=== PATIENT | male | born 1980 | race Caucasian/White ===

== ENCOUNTER 2016-06-22 13:13 | Inpatient (IN) | payer MEDICAID, OTHER ==
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
[2016-06-22] MEDS ORDERED: HALOPERIDOL LACTATE 5 MG/ML 1 ML VIAL IM STA (14:57)
[2016-06-22] MEDS ORDERED: ACETAMINOPHEN TAB 325 MG TAB PO PRN (18:56)
[2016-06-22] MEDS ORDERED: MAGNESIUM HYDROXIDE 2,400 MG/10 ML CUP PO PRN (18:56)
[2016-06-22] MEDS ORDERED: MAG HYDROX/AL HYDROX/SIMETH 30 ML CUP PO PRN (18:56)
[2016-06-22] MEDS ORDERED: ZIPRASIDONE 20 MG VIAL IM PRN (18:56)
[2016-06-22] MEDS ORDERED: IBUPROFEN 800 MG TAB PO PRN (19:19)
[2016-06-22] MEDS ORDERED: CLOTRIMAZOLE 1% CREAM 15 GM TUBE TOPICAL PRN (19:19)
[2016-06-22] MEDS ORDERED: NON-FORMULARY DRUG (Ketoconazole 2% Cream 1 APPLIC) TOPICAL PRN (19:19)
[2016-06-22] MEDS ORDERED: LORazepam 2 MG/ML SYRINGE IM PRN (19:21)
[2016-06-22 19:43] LABS: Amorphous Sediment,Urine Rare /hpf; Appearance,Urine Clear (Clear); Bilirubin,Urine Negative (Negative); Glucose,Urine (UA) Negative (Negative); Ketones,Urine Negative (Negative); Leukocyte Esterase,Urine Negative (Negative); Mucus,Urine Rare /hpf; Nitrite,Urine Negative (Negative); PH, Urine 5.5 (5.0-8.0); Particle Count 609; Protein,Urine Negative (Negative); Specific Gravity,Urine 1.009 (1.001-1.035); Squamous Epithelial Cell,Urine <1 /hpf (0-4); UA Billing (MACRO vs. MICRO) MICRO; Urobilinogen,Urine <2.0 mg/dL (<2.0); WBC,Urine <1 /hpf (0-5)
[2016-06-22] MEDS: MONTELUKAST 10 MG TAB PO SCH (21:40)
[2016-06-22] MEDS: PREGABALIN 75 MG CAP PO SCH (21:41)
[2016-06-22] MEDS: valACYclovir 500 MG TAB PO SCH (21:41)
[2016-06-23] MEDS: LORazepam 1 MG TAB PO PRN ×2 (08:28→21:29)
[2016-06-23] MEDS: LORATADINE 10 MG TAB PO SCH (08:29)
[2016-06-23] MEDS: NICOTINE 14MG/24HR PATCH TRANSDERM SCH ×2 (08:29→17:48)
[2016-06-23] MEDS: FLUoxetine HCL 20 MG CAP PO SCH (08:29)
[2016-06-23] MEDS: PREGABALIN 75 MG CAP PO SCH ×2 (08:29→21:25)
[2016-06-23] MEDS: valACYclovir 500 MG TAB PO SCH ×2 (08:29→21:26)
[2016-06-23 10:26] LABS: Basophils % (A) 1 %; CH 29.9; CHCM 33.4; Eosinophils # (A) 0.3 k/uL (0-0.7); Eosinophils % (A) 4 %; HCT 43.7 % (39.0-53.0); HDW 2.82; HGB 14.5 gm/dL (13.0-17.5); Luc # (Auto) 0.12; Luc % (Auto) 2; Lymphocytes # (A) 0.7 k/uL (1.0-4.8); Lymphocytes % (A) 10 %; MCH 29.9 pg (25.0-35.0); MCHC 33.2 g/dL (31.0-37.0); Mean Platelet Volume 7.4; Monocytes # (A) 0.5 k/uL (0-1.0); Monocytes % (A) 8 %; Neutrophils # (A) 5.5 k/uL (1.3-7.7); Neutrophils % (A) 77 %; RBC 4.85 m/uL (4.30-5.90); RDW 14.1 % (11.5-15.5); WBC 7.1 k/uL (3.8-10.6); WBC (Perox) 7.51
[2016-06-23 10:31] LABS: ALT 92 U/L (21-72); AST 121 U/L (17-59); Alkaline Phosphatase 52 U/L (38-126); Anion Gap 6 mmol/L; Blood Urea Nitrogen 14 mg/dL (9-20); Calcium 8.8 mg/dL (8.4-10.2); Carbon Dioxide 26 mmol/L (22-30); Chloride 108 mmol/L (98-107); Glucose 160 mg/dL (74-99); Non-African American GFR(MDRD) >60 (>60 ml/min/1.73 sqM); Potassium 4.3 mmol/L (3.5-5.1); Sodium 140 mmol/L (137-145); Total Protein 6.6 g/dL (6.3-8.2)
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
[2016-06-23] MEDS: MONTELUKAST 10 MG TAB PO SCH (21:25)
[2016-06-23] MEDS: TRIAMCINOLONE 0.1% CREAM 80 GM TUBE TOPICAL SCH (21:26)
[2016-06-23] MEDS: MUPIROCIN 2% OINT 22 GM TUBE TOPICAL SCH (21:27)
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
[2016-06-24] MEDS: NICOTINE 14MG/24HR PATCH TRANSDERM SCH (09:20)
[2016-06-24] MEDS: LORATADINE 10 MG TAB PO SCH (09:20)
[2016-06-24] MEDS: FLUoxetine HCL 20 MG CAP PO SCH (09:20)
[2016-06-24] MEDS: valACYclovir 500 MG TAB PO SCH (09:21)
[2016-06-24] MEDS: TRIAMCINOLONE 0.1% CREAM 80 GM TUBE TOPICAL SCH ×3 (09:21→19:10)
[2016-06-24] MEDS: PREGABALIN 75 MG CAP PO SCH (09:21)
[2016-06-24] MEDS: MUPIROCIN 2% OINT 22 GM TUBE TOPICAL SCH ×3 (09:22→19:10)
[2016-06-24] MEDS: FLUTICASONE 50MCG/SPRAY NASAL 16GM EA NOSTRIL PRN ×2 (09:24→13:50)
[2016-06-24] MEDS: LORazepam 1 MG TAB PO PRN (09:25)
--- NOTE | 2016-06-24 10:52 | P.PN ---
Progress Note - Text Interval history: The patient is found in group he follows me to an interview room. He was seen initially yesterday by Dr. Portilol. His Celexa was changed to Prozac. The patient states he was on Xanax 2 mg 3 times a day and we are utilizing Ativan 1 mg up to 3 times daily. Vital signs are reviewed they're within normal limits. He states he is here because he relapsed with alcohol since the 10th of this month. He is hoping for a short hospitalization and repetitiously asks when he'll be discharged. He requests trazodone for sleep as he has been successful with that in the past. He also requests his Adderall. He was informed that that is nonformulary. Mental status exam: The patient is a thin male he is dressed in his own clothing eye contact is appropriate he reports his mood is okay but he does feel anxious. He is reporting no suicidal ideation intent or plan or homicidal ideation intent or plan. He is reporting no auditory or visual hallucinations or specific delusions. He does not appear hypomanic or manic. He is somewhat intrusive asking personal questions. He is noted to put his arm around nursing staff. He maintains a smiling affect. He does appear to have some chronic cognitive limitation. Insight and judgment somewhat limited. He demonstrates no verbal or physical aggressiveness. He is oriented to person place and date. Plan: The patient will continue on his current medication we will add trazodone 100 mg at bedtime. He is requesting that his nicotine patch be increased. We will continue the Ativan as written. We will monitor him for safety and encourage his participation in the milieu.
[2016-06-24] MEDS: ALBUTEROL INHALER 60 PUFF/8 GM INHALER INHALATION PRN ×2 (11:06→15:35)
[2016-06-24] MEDS: NICOTINE 21MG/24HR PATCH TRANSDERM SCH ×2 (11:15→19:03)
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
[2016-06-24 13:19] VITALS: BMI 23.7
[2016-06-24] MEDS: BACITRACIN 500 UNIT/GM OINT 28.4 GM TUBE TOPICAL SCH (15:51)
[2016-06-24] MEDS ORDERED: PREGABALIN 75 MG CAP ONE (21:00)
[2016-06-24] MEDS ORDERED: traZODone HCL 100 MG TAB PO SCH (21:00)
[2016-06-24] MEDS ORDERED: MONTELUKAST 10 MG TAB ONE (21:00)
[2016-06-24] MEDS ORDERED: valACYclovir 500 MG TAB ONE (21:00)
[2016-06-24] MEDS ORDERED: traZODone HCL 100 MG TAB ONE (21:00)
[2016-06-25] MEDS: ALBUTEROL INHALER 60 PUFF/8 GM INHALER INHALATION PRN ×3 (08:55→21:40)
[2016-06-25] MEDS: valACYclovir 500 MG TAB PO SCH ×3 (09:03→21:34)
[2016-06-25] MEDS: LORATADINE 10 MG TAB PO SCH (09:03)
[2016-06-25] MEDS: PREGABALIN 75 MG CAP PO SCH ×3 (09:05→21:35)
[2016-06-25] MEDS: TRIAMCINOLONE 0.1% CREAM 80 GM TUBE TOPICAL SCH ×2 (09:05→21:36)
[2016-06-25] MEDS: LORazepam 1 MG TAB PO PRN ×3 (09:06→21:36)
[2016-06-25] MEDS: FLUTICASONE 50MCG/SPRAY NASAL 16GM EA NOSTRIL PRN ×3 (09:06→21:36)
[2016-06-25] MEDS: MUPIROCIN 2% OINT 22 GM TUBE TOPICAL SCH ×3 (09:08→21:36)
[2016-06-25] MEDS: NICOTINE 21MG/24HR PATCH TRANSDERM SCH (09:09)
[2016-06-25] MEDS: FLUoxetine HCL 20 MG CAP PO SCH (09:09)
--- NOTE | 2016-06-25 09:24 | P.PN ---
Progress Note - Text Interval history: The patient is found in the hallway he follows me to an interview room. He reports that his mood is good. He was able to sleep better with the trazodone but still was a low restless and states he did better with 150 mg in the past using that medication. He was seen by internal medicine and dermatology. It was determined that his skin lesions are likely due to insect bites possibly bedbugs. He reports having a supportive visit from his father yesterday. The patient's been attending groups there has been no report of agitated behavior. Mental status exam: The patient is a thin male appearing older than his stated age. He is casually dressed. Eye contact is appropriate speech is fluent spontaneous intrusive at times but easily directed. He is pleasant and cooperative. He is reporting no suicidal or homicidal ideation intent or plan he is endorsing no auditory or visual hallucinations he reports no specific delusions. As he seated he demonstrates no overt evidence of psychosis. He does seem to have an increase in psychomotor activity but this could be chronic and related to history of head injury. There is no verbal or physical aggressiveness. Plan: The patient will continue on his current medication I will increase the trazodone 150 mg at bedtime for sleep. We will monitor him for safety and encourage his participation in the milieu. Vital signs reviewed.
[2016-06-25] MEDS: MONTELUKAST 10 MG TAB PO SCH ×2 (18:34→21:34)
[2016-06-25] MEDS ORDERED: traZODone HCL 50 MG TAB PO SCH (21:00)
[2016-06-26 06:44] VITALS: RESP 20; TEMP 97.6
[2016-06-26] MEDS: NICOTINE 21MG/24HR PATCH TRANSDERM SCH (09:05)
[2016-06-26] MEDS: FLUoxetine HCL 20 MG CAP PO SCH (09:06)
[2016-06-26] MEDS: TRIAMCINOLONE 0.1% CREAM 80 GM TUBE TOPICAL SCH (09:06)
[2016-06-26] MEDS: PREGABALIN 75 MG CAP PO SCH (09:07)
[2016-06-26] MEDS: LORATADINE 10 MG TAB PO SCH (09:07)
[2016-06-26] MEDS: BACITRACIN 500 UNIT/GM OINT 28.4 GM TUBE TOPICAL SCH (09:10)
[2016-06-26] MEDS: LORazepam 1 MG TAB PO PRN ×2 (09:11→16:02)
[2016-06-26 09:12] VITALS: BP 105/59; PULSE 96
[2016-06-26] MEDS: valACYclovir 500 MG TAB PO SCH (10:38)
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
[2016-06-26] MEDS: ALBUTEROL INHALER 60 PUFF/8 GM INHALER INHALATION PRN (11:05)
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
[2016-06-26] MEDS: MUPIROCIN 2% OINT 22 GM TUBE TOPICAL SCH ×2 (13:56→15:52)
[2016-06-26] MEDS: FLUTICASONE 50MCG/SPRAY NASAL 16GM EA NOSTRIL PRN (14:00)
--- NOTE | 2016-06-26 17:01 | ED ---
Medical Decision Making - Lab Data Result diagrams: 06/23/16 09:40 06/23/16 09:40 Lab Results 06/22/16 06/22/16 Range/Units 13:37 13:37 Urine Color Light Yellow Urine Appearance Clear (Clear) Urine pH 5.5 (5.0-8.0) Ur Specific Drew 1.009 (1.001-1.035) Urine Protein Negative (Negative) Urine Glucose (UA) Negative (Negative) Urine Ketones Negative (Negative) Urine Blood Trace H (Negative) Urine Nitrite Negative (Negative) Urine Bilirubin Negative (Negative) Urine Urobilinogen <2.0 (<2.0) mg/dL Ur Leukocyte Esterase Negative (Negative) Urine WBC <1 (0-5) /hpf Ur Squamous Epith Cells <1 (0-4) /hpf Amorphous Sediment Rare H (None) /hpf Urine Mucus Rare H (None) /hpf Urine Opiates Screen Detected H (NotDetected) Ur Oxycodone Screen Not Detected (NotDetected) Urine Methadone Screen Not Detected (NotDetected) Ur Propoxyphene Screen Not Detected (NotDetected) Ur Barbiturates Screen Not Detected (NotDetected) U Tricyclic Antidepress Not Detected (NotDetected) Ur Phencyclidine Scrn Not Detected (NotDetected) Ur Amphetamines Screen Not Detected (NotDetected) U Methamphetamines Scrn Not Detected (NotDetected) U Benzodiazepines Scrn Detected H (NotDetected) Urine Cocaine Screen Not Detected (NotDetected) U Marijuana (THC) Screen Not Detected (NotDetected) Disposition Clinical Impression: Drug overdose, Acute psychosis Disposition: TRANSFER TO PSYCH HOSP/UNIT Condition: Stable Procedures - Restraint - Face to Face Restraint Occurrence 1 Patient's Immediate Situation: Endangers self safety, Endangers others' safety Patient's Reaction to the Intervention: Uncooperative, Hostile, Belligerent Patient's Medical & Behavioral Condition: Alert, Anxious, Agitated Face to Face Eval of Restraint Date: 06/22/16 Face to Face Eval of Restraint Time: 13:40
== END 2016-06-26 16:19 | disposition home or self-care (01) | DRG 885 ==
LOC: EC 13:13 → 3MHU 18:00
PROVIDERS: ADMIT Psychiatry & Neurology Addiction Medicine; ATTEND Psychiatry & Neurology Addiction Medicine
DX: F23 Brief psychotic disorder (principal); R45.851 Suicidal ideations; F60.9 Personality disorder, unspecified; F10.129 Alcohol abuse with intoxication, unspecified; F17.210 Nicotine dependence, cigarettes, uncomplicated; W57.XXXA Bitten or stung by nonvenomous insect and other nonvenomous arthropods, initial encounter; Z87.820 Personal history of traumatic brain injury
CPT/HCPCS: 80053; 80306; 81001; 82075; 84443; 85025; 94640; 96372; 99285

== ENCOUNTER → 2016-07-11 | Outpatient (CLI) | payer OTHER ==
--- NOTE | 2016-07-11 19:31 | CT ---
EXAMINATION TYPE: CT brain wo con DATE OF EXAM: 07/11/2016 COMPARISON: 06/29/2014 INDICATION: Visual disturbance and Left sided numbness DLP: 1121 mGycm, Automated exposure control for dose reduction was used. CONTRAST: None CT of the brain is performed utilizing 3 mm thick sections through the posterior fossa and 3 mm thick sections through the remaining calvarium. Study is performed within 24 hours of arrival to the hosp ital. No abnormal hyperdensity is present to suggest an acute intracranial hemorrhage. No mass lesion is evident. No acute infarcts are evident. The low-density fullness within the posterior fossa was present previo usly and could be related to an arachnoid cyst. Ventricles and sulci are appropriate for the patient age. Paranasal sinuses and mastoid air cells within the [id number] are clear. IMPRESSIONS: 1. Normal CT Brain
== END | disposition home or self-care (01) ==
LOC: RADCTMAIN 18:43
PROVIDERS: ATTEND Family Medicine
DX: R41.82 Altered mental status, unspecified (principal)
CPT/HCPCS: 70450

== ENCOUNTER → 2016-08-18 | Outpatient (CLI) | payer OTHER ==
--- NOTE | 2016-08-19 08:46 | ECHOF ---
Referral Reason:R01.1 Heart murmur MEASUREMENTS -------- HEIGHT: 182.9 cm WEIGHT: 72.6 kg BP: 123/79 RVIDd: 2.6 cm (< 3.3) IVSd: 1.3 cm (0.6 - 1.1) LVIDd: 4.5 cm (3.9 - 5.3) LVPWd: 1.2 cm (0.6 - 1.1) IVSs: 1.8 cm LVIDs: 3.0 cm LVPWs: 1.8 cm LAESV Index (A-L): 21.16 ml/m Ao Diam: 3.4 cm (2.0 - 3.7) AV Cusp: 2.4 cm (1.5 - 2.6) LA Diam: 1.9 cm (2.7 - 3.8) MV EXCURSION: 20.347 mm (> 18.000) MV EF SLOPE: 108 mm/s (70 - 150) EPSS: 0.9 cm MV E Arvind: 0.80 m/s MV DecT: 243 ms MV A Arvind: 0.58 m/s MV E/A Ratio: 1.37 RAP: 5.00 mmHg RVSP: 10.99 mmHg FINDINGS -------- Sinus rhythm. This was a technically good study. There is borderline concentric left ventricular hypertrophy. Overall left ventricular systolic function is normal with, an EF between 60 - 65 %. The right ventricle is normal in size and function. Normal LA size by volume 22+/-6 ml/m2. The right atrium is normal in size. Aortic valve is trileaflet and is mildly thickened. Trace amount of aortic regurgitation. There is no evidence of aortic stenosis. There is trace to mild mitral regurgitation. Trace tricuspid regurgitation present. There is no evidence of pulmonary hypertension. The right ventricular systolic pressure, as measured by Doppler, is 10.99mmHg. Trace/mild (physiologic) pulmonic regurgitation. The aortic root size is normal. Normal inferior vena cava with normal inspiratory collapse consistent with estimated right atrial pressure of 5 mmHg. The pericardium is normal. There is no pericardial effusion. CONCLUSIONS -------- 1. Sinus rhythm. 2. There is no evidence of pulmonary hypertension. 3. The right ventricular systolic pressure, as measured by Doppler, is 10.99mmHg. 4. Trace/mild (physiologic) pulmonic regurgitation. 5. The aortic root size is normal. 6. There is no pericardial effusion. 7. This was a technically good study. 8. There is borderline concentric left ventricular hypertrophy. 9. Overall left ventricular systolic function is normal with, an EF between 60 - 65 %. 10. Normal LA size by volume 22+/-6 ml/m2. 11. Aortic valve is trileaflet and is mildly thickened. 12. Trace amount of aortic regurgitation. 13. There is trace to mild mitral regurgitation. 14. Trace tricuspid regurgitation present. HEMODIALYSIS LAB TECHNICIAN: Jerardo Patel RDCS
== END | disposition home or self-care (01) ==
LOC: RADECHMAIN 16:03
PROVIDERS: ATTEND Family Medicine
DX: I08.3 Combined rheumatic disorders of mitral, aortic and tricuspid valves (principal)
CPT/HCPCS: 93306

== ENCOUNTER 2022-07-30 07:13 | Inpatient (IN) | payer MEDICAID, OTHER ==
[2022-07-30] MEDS ORDERED: diphenhydrAMINE 50 MG/ML 1 ML VIAL IM STA (07:40)
[2022-07-30] MEDS ORDERED: HALOPERIDOL LACTATE 5 MG/ML 1 ML VIAL IM STA (07:40)
[2022-07-30] MEDS ORDERED: LORazepam 2 MG/ML INJ IM STA (07:40)
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
[2022-07-30 16:13] LABS: Amorphous Sediment,Urine Rare /hpf; Appearance,Urine Cloudy (Clear); Bilirubin,Urine Negative (Negative); Blood,Urine Negative (Negative); Calcium Oxalate Crystals,Urine Many /hpf; Color,Urine Yellow; Glucose,Urine (UA) Negative (Negative); Ketones,Urine Negative (Negative); Leukocyte Esterase,Urine Negative (Negative); Mucus,Urine Rare /hpf; Nitrite,Urine Negative (Negative); PH, Urine 5.5 (5.0-8.0); Protein,Urine Trace (Negative); Specific Gravity,Urine 1.022 (1.001-1.035); Squamous Epithelial Cell,Urine <1 /hpf (0-4); Urobilinogen,Urine <2.0 mg/dL (<2.0); WBC,Urine 4 /hpf (0-5)
[2022-07-30 16:25] LABS: Amphetamine Screen,Urine Detected (NotDetected); Barbiturate Screen,Urine Not Detected (NotDetected); Benzodiazepines Screen,Urine Detected (NotDetected); Cocaine Screen,Urine Not Detected (NotDetected); Methadone Screen, Urine Not Detected (NotDetected); Opiate Screen,Urine Not Detected (NotDetected); Oxycodone Screen, Urine Not Detected (NotDetected); Phencyclidine Screen,Urine Not Detected (NotDetected); Tricyclic Antidepressant,Urine Not Detected (NotDetected); Urn Cannabinoid Scrn Detected (NotDetected)
[2022-07-30] MEDS ORDERED: FLUTICASONE 50MCG/SPRAY NASAL 16GM EA NOSTRIL PRN (22:08)
[2022-07-31] MEDS: LEVOTHYROXINE 50 MCG TAB PO SCH (06:33)
[2022-07-31] MEDS: IBUPROFEN 800 MG TAB PO SCH ×3 (08:23→21:04)
[2022-07-31] MEDS: LORATADINE 10 MG TAB PO SCH (08:24)
[2022-07-31] MEDS: NICOTINE 14MG/24HR PATCH TRANSDERM SCH (08:24)
[2022-07-31] MEDS: hydrOXYzine HCL 25 MG TAB PO SCH ×3 (08:24→21:03)
[2022-07-31] MEDS ORDERED: NON FORMULARY DRUG (Atomoxetine Hcl [Strattera] 40 MG Capsule) PO SCH (09:00)
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
[2022-07-31 11:32] LABS: Chol/HDL Ratio 2.87 Ratio; LDL Cholesterol,Calculated 96.3 mg/dL (0.0-131.0); VLDL Calculation 13.08 mg/dL (5.00-40.00)
[2022-07-31 12:52] VITALS: BMI 19.5
[2022-07-31] MEDS ORDERED: traZODone HCL 50 MG TAB PO PRN (14:21)
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
[2022-07-31] MEDS: FLUoxetine HCL 20 MG CAP PO SCH (15:36)
--- NOTE | 2022-07-31 17:27 | XR ---
EXAMINATION TYPE: XR ankle complete RT DATE OF EXAM: 07/31/2022 5:14 PM INDICATION: Patient age:Male; 42 years old; Reason for study: Reports acute ankle pain; bruising; COMPARISON: None TECHNIQUE: The right ankle is imaged in frontal, lateral and oblique projections. FINDINGS: There is no evidence of acute osseous pathology. The joint spaces are well-preserved without evidenc e of subluxation or dislocation. Kager's fat pad is intact. No significant soft tissue swelling visua lized. No radiopaque foreign bodies are identified. IMPRESSION: No evidence of acute fracture.
[2022-07-31] MEDS ORDERED: OLANZapine 5 MG TAB PO SCH (21:00)
[2022-07-31] MEDS: MONTELUKAST 10 MG TAB PO SCH (21:04)
[2022-08-01] MEDS: LEVOTHYROXINE 50 MCG TAB PO SCH (06:41)
[2022-08-01] MEDS: FLUoxetine HCL 20 MG CAP PO SCH (08:17)
[2022-08-01] MEDS: LORATADINE 10 MG TAB PO SCH (08:17)
[2022-08-01] MEDS: NICOTINE 14MG/24HR PATCH TRANSDERM SCH (08:17)
[2022-08-01] MEDS: IBUPROFEN 800 MG TAB PO SCH (08:18)
[2022-08-01] MEDS: hydrOXYzine HCL 25 MG TAB PO SCH ×3 (08:18→21:11)
[2022-08-01] MEDS: haloperidoL 5 MG TAB PO PRN (10:55)
[2022-08-01] MEDS: ACETAMINOPHEN TAB 325 MG TAB PO PRN (10:55)
[2022-08-01] MEDS: MAGNESIUM HYDROXIDE 2,400 MG/30 ML CUP PO PRN (10:55)
[2022-08-01] MEDS: cloNIDine HCL 0.1 MG TAB PO PRN (11:21)
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
[2022-08-01] MEDS: IBUPROFEN 800 MG TAB PO PRN (15:03)
[2022-08-01] MEDS ORDERED: chlordiazePOXIDE 25 MG CAP PO STA (18:34)
[2022-08-01] MEDS: LORazepam 1 MG TAB PO PRN (18:43)
[2022-08-01] MEDS ORDERED: OLANZapine 7.5 MG TAB PO SCH (21:00)
[2022-08-01] MEDS: chlordiazePOXIDE 25 MG CAP PO SCH (21:11)
[2022-08-01] MEDS: MONTELUKAST 10 MG TAB PO SCH (21:11)
[2022-08-02] MEDS: LORazepam 1 MG TAB PO PRN ×3 (06:11→16:15)
[2022-08-02] MEDS: LEVOTHYROXINE 50 MCG TAB PO SCH (06:11)
[2022-08-02] MEDS: chlordiazePOXIDE 25 MG CAP PO SCH ×4 (08:37→21:04)
[2022-08-02] MEDS: FLUoxetine HCL 20 MG CAP PO SCH (08:37)
[2022-08-02] MEDS: MAGNESIUM HYDROXIDE 2,400 MG/30 ML CUP PO PRN (08:37)
[2022-08-02] MEDS: LORATADINE 10 MG TAB PO SCH (08:38)
[2022-08-02] MEDS: hydrOXYzine HCL 25 MG TAB PO SCH ×3 (08:38→21:04)
[2022-08-02] MEDS: THIAMINE 100 MG TAB PO SCH (08:38)
[2022-08-02] MEDS: FOLIC ACID 1 MG TAB PO SCH (08:38)
[2022-08-02] MEDS: MULTIVITAMINS, THERA 1 EACH TAB PO SCH (08:38)
[2022-08-02] MEDS: NICOTINE 21MG/24HR PATCH TRANSDERM SCH (09:16)
--- NOTE | 2022-08-02 11:15 | P.PN ---
Progress Note - Text Progress Note Date: 08/02/22 Interval History: Patient was seen lying in bed this morning and was awoken by web content writer. He appea red to be somewhat lethargic today. He claims that he is still having significant withdrawal symptoms and showed web content writer his hands which were not trembling. Slip Seat Coverer reviewed patient's vital signs and this morning patient was tachycardic however blood pressure has been fairly good. Patient has been taking Librium and CIWA protocol with Ativan. He claims that he was feeling a bit nauseous but mainly anxious at this time due to the withdrawal symptoms. He continues to be focused on going to rehab. We spoke about other options to help with his withdrawal symptoms including clonidine which is located take. He continues to be apologetic about his situation and thankful to web content writer. Less irritable and labile today. Claims that his mood has been mildly improving since yesterday. States that he did not sleep well last night. At this time patient denies any suicidal or homical ideations, intent or plan. Patient denies any auditory, visual hallucinations and denies any paranoia or delusions. Patient denies any side effects from the medications and has been compliant with meds. Mental Status Exam: general Appearance: Patient appears to be thin, short hair, dyed blonde, stated age is alert, directable. Patient appears to have improving hygiene and grooming. Behavior: Patient is seated without any agitated behavior. less Labile. less Intrusive, lethargic today Speech: Patient's speech is fluent and nonpressured. Mood/Affect: Patient reports their mood is depressed and anxious, improving mildly, affect is congruent Suicidality/Homicidality: Patient denies having any homicidal ideation intent or plan. Denies any suicidal ideations intent or plan Perceptions: Patient denies any visual hallucinations and denies any auditory hallucinations Though content/process: Rambling, speaking more positively today about his father. Preoccupied with his symptoms/withdrawals. Patient to be more future oriented today and more goal oriented. Memory and concentration: AOX3, grossly intact for the purposes of this session Judgment and insight: Chronically limited, improving mildly IMPRESSIONS: Bipolar disorder, unspecified Major neurocognitive disorder due to probable medical etiology Alcohol use disorder Methamphetamine use disorder severe Cannabis use disorder Nicotine dependence. PLAN: -Patient is admitted under voluntary status to MHU for stabilization of psychiatric symptoms and safety. Patient has signed adult voluntary form and medication consent and is placed in patient's chart. -Medications : increase Zyprexa 10 mg daily at bedtime for mood stabilization/sleep, increase Prozac 40 mg daily for mood/anxiety, trazodone when necessary for sleep. decrease librium 25 mg QID for etoh withdrawals and clonidine 0.1 mg q8hr prn for withdrawal sx. -Vistaril and haldol PRN for agitation/aggression -thiamine, MVM for etoh use -CIWA protocol with Ativan PRN for ETOH withdrawal -NRT - nicotine patch -SW on board for discharge planning. Encourage patient to participate in groups to work on coping skills. Patient is interested in going to rehab, he will be calling access line today
[2022-08-02] MEDS: IBUPROFEN 800 MG TAB PO PRN (13:36)
[2022-08-02] MEDS: ALBUTEROL INHALER 60 PUFF/8 GM INHALER (MHU) INHALATION PRN (13:37)
[2022-08-02] MEDS ORDERED: OLANZapine 10 MG TAB PO SCH (21:00)
[2022-08-02] MEDS: MONTELUKAST 10 MG TAB PO SCH (21:04)
[2022-08-03] MEDS: LEVOTHYROXINE 50 MCG TAB PO SCH (05:44)
[2022-08-03] MEDS: haloperidoL 5 MG TAB PO PRN (05:47)
[2022-08-03] MEDS: NICOTINE 21MG/24HR PATCH TRANSDERM SCH (07:54)
[2022-08-03] MEDS: LORATADINE 10 MG TAB PO SCH (07:55)
[2022-08-03] MEDS: MULTIVITAMINS, THERA 1 EACH TAB PO SCH (07:55)
[2022-08-03] MEDS: FOLIC ACID 1 MG TAB PO SCH (07:55)
[2022-08-03] MEDS: FLUoxetine HCL 20 MG CAP PO SCH (07:55)
[2022-08-03] MEDS: THIAMINE 100 MG TAB PO SCH (07:55)
[2022-08-03] MEDS: chlordiazePOXIDE 25 MG CAP PO SCH (07:55)
[2022-08-03] MEDS: hydrOXYzine HCL 25 MG TAB PO SCH ×3 (07:55→21:23)
[2022-08-03] MEDS: IBUPROFEN 800 MG TAB PO PRN (10:26)
[2022-08-03] MEDS: LORazepam 1 MG TAB PO PRN (10:26)
[2022-08-03] MEDS: SENNOSIDES-DOCUSATE SODIUM 1 EACH TAB PO SCH ×2 (10:40→21:25)
--- NOTE | 2022-08-03 10:40 | P.PN ---
Progress Note - Text Progress Note Date: 08/03/22 Interval History: Patient was seen lying in bed this morning and was awoken by song writer. He appea red to be somewhat lethargic today however did awaken. He was less irritable today and claims that he is still "withdrawing bad" from the recreational drugs she was using. His vitals appear to be improving, patient is continuing to take Ativan when necessary and also Librium and also clonidine. He claims that he did not sleep well last night and had frequent awakenings. He has mainly been keeping to himself in his room. He continues to be focused on wanting to get into rehab and asked song writer if he could help him with that. Claims that his mood has been mildly improving since yesterday. He also did state that he has not been moving his bowels for the past few days and is feeling uncomfortable. At this time patient denies any suicidal or homical ideations, intent or plan. Patient denies any auditory, visual hallucinations and denies any paranoia or delusions. Patient denies any side effects from the medications and has been compliant with meds. Mental Status Exam: general Appearance: Patient appears to be thin, short hair, dyed blonde, stated age is alert, directable. Patient appears to have improving hygiene and grooming. Behavior: Patient is seated without any agitated behavior. less Intrusive, lethargic today Speech: Patient's speech is fluent and nonpressured. Mood/Affect: Patient reports their mood is improving mildly, affect is congruent Suicidality/Homicidality: Patient denies having any homicidal ideation intent or plan. Denies any suicidal ideations intent or plan Perceptions: Patient denies any visual hallucinations and denies any auditory hallucinations Though content/process: Rambling, speaking more positively today about his father. Preoccupied with his symptoms/withdrawals. Patient to be more future oriented today Memory and concentration: AOX3, grossly intact for the purposes of this session Judgment and insight: Chronically limited, improving mildly IMPRESSIONS: Bipolar disorder, unspecified Major neurocognitive disorder due to probable medical etiology Alcohol use disorder Methamphetamine use disorder severe Cannabis use disorder Nicotine dependence. PLAN: -Patient is admitted under voluntary status to MHU for stabilization of p sychiatric symptoms and safety. Patient has signed adult voluntary form and medication consent and is placed in patient's chart. -Medications : Increase Zyprexa 15 mg daily at bedtime for mood stabi lization/sleep, Prozac 40 mg daily for mood/anxiety, trazodone when necessary for sleep. decrease librium 20 mg QID for etoh withdrawals, continue to taper down slowly and clonidine 0.1 mg q8hr prn for withdrawal sx. added senna- docusate bid for constipation. -Vistaril and haldol PRN for agitation/aggression -thiamine, MVM for etoh use -CIWA protocol with Ativan PRN for ETOH withdrawal -NRT - nicotine patch -SW on board for discharge planning. Encourage patient to participate in groups to work on coping skills. Patient is interested in going to rehab, he will be calling access line today. likely discharge early next week.
[2022-08-03] MEDS: MONTELUKAST 10 MG TAB PO SCH (21:24)
[2022-08-03] MEDS: OLANZapine 7.5 MG TAB PO SCH (21:25)
[2022-08-04] MEDS: LEVOTHYROXINE 50 MCG TAB PO SCH (06:40)
[2022-08-04] MEDS: MAG HYDROX/AL HYDROX/SIMETH 30 ML CUP PO PRN (06:44)
[2022-08-04] MEDS: cloNIDine HCL 0.1 MG TAB PO PRN ×2 (06:44→15:04)
[2022-08-04 07:02] VITALS: RESP 18; TEMP 98.7
[2022-08-04] MEDS: NICOTINE 21MG/24HR PATCH TRANSDERM SCH (08:24)
[2022-08-04] MEDS: MAGNESIUM HYDROXIDE 2,400 MG/30 ML CUP PO PRN (08:25)
[2022-08-04] MEDS: hydrOXYzine HCL 25 MG TAB PO SCH ×3 (08:25→21:20)
[2022-08-04] MEDS: SENNOSIDES-DOCUSATE SODIUM 1 EACH TAB PO SCH ×2 (08:25→21:20)
[2022-08-04] MEDS: MULTIVITAMINS, THERA 1 EACH TAB PO SCH (08:25)
[2022-08-04] MEDS: LORATADINE 10 MG TAB PO SCH (08:25)
[2022-08-04] MEDS: FLUoxetine HCL 20 MG CAP PO SCH (08:25)
[2022-08-04] MEDS: FOLIC ACID 1 MG TAB PO SCH (08:25)
[2022-08-04] MEDS: THIAMINE 100 MG TAB PO SCH (08:26)
[2022-08-04] MEDS ORDERED: ONDANSETRON ODT 8 MG TAB.RAPDIS PO PRN (11:33)
--- NOTE | 2022-08-04 11:38 | P.PN ---
Progress Note - Text Progress Note Date: 08/04/22 Interval History: Patient was seen lying in bed this morning and was awoken by va underwriter. Patient continues to be fairly isolative and sitting in his program. He continues to be fairly focused on medications and also his withdrawal symptoms. He was fairly vague about what he is withdrawing from today. We spoke about the plan going forward to taper his medications which she was okay with. He claims that he was feeling nauseous this morning and va underwriter was agreeable to start Zofran as needed. He claims that he was sleeping on and off yesterday and also at nighttime. States that his appetite is gradually improving. He continues to state that he wants to go to rehab however has not heard back from them at this time. Claims that his mood has been mildly improving since yesterday however continues to have elevated levels of anxiety. He also did state that he has not been moving his bowels for the past few days and is feeling uncomfortable. At this time patient denies any suicidal or homical ideations, intent or plan. Patient denies any auditory, visual hallucinations and denies any paranoia or delusions. Patient denies any side effects from the medications and has been compliant with meds. Mental Status Exam: general Appearance: Patient appears to be thin, short hair, dyed blonde, stated age is alert, directable. Patient appears to have improving hygiene and grooming. Behavior: Patient is seated without any agitated behavior. less Intrusive Speech: Patient's speech is fluent and nonpressured. [place] Mood/Affect: Patient reports their mood is improving mildly, affect is congruent Suicidality/Homicidality: Patient denies having any homicidal ideation intent or plan. Denies any suicidal ideations intent or plan Perceptions: Patient denies any visual hallucinations and denies any auditory hallucinations Though content/process: Rambling, speaking more positively today about his father. Preoccupied with his symptoms/withdrawals. Memory and concentration: AOX3, grossly intact for the purposes of this session Judgment and insight: Chronically limited, improving mildly IMPRESSIONS: Bipolar disorder, unspecified Major neurocognitive disorder due to probable medical etiology Alcohol use disorder Methamphetamine use disorder severe Cannabis use disorder Nicotine dependence. PLAN: -Patient is admitted under voluntary status to [facility] for stabilization of psychiatric symptoms and safety. Patient has signed adult voluntary form and medication consent and is placed in patient's chart. -Medications : Zyprexa 15 mg daily at bedtime for mood stabilization/sleep, increased Prozac 60 mg daily for mood/anxiety, trazodone when necessary for sleep. decrease librium 20 mg TID for etoh withdrawals, continue to taper down slowly and clonidine 0.1 mg q8hr prn for withdrawal sx. senna-docusate bid for constipation along with colace. added zofran prn for nausea. -Vistaril and haldol PRN for agitation/aggression -thiamine, MVM for etoh use -CIWA protocol with Ativan PRN for ETOH withdrawal -NRT - nicotine patch -SW on board for discharge planning. Encourage patient to participate in groups to work on coping skills. Patient is interested in going to rehabm currently awiaitng decision on this. if patient is not accepted into rehab directly from hospital then likely discharge back home first, early next week.
[2022-08-04] MEDS: DOCUSATE 100 MG CAP PO SCH (11:46)
[2022-08-04] MEDS: BENZOCAINE 20 % GEL 11.9 GM TUBE MM PRN (12:24)
[2022-08-04] MEDS: LORazepam 1 MG TAB PO PRN (15:04)
[2022-08-04] MEDS: haloperidoL 5 MG TAB PO PRN (15:04)
[2022-08-04] MEDS: IBUPROFEN 800 MG TAB PO PRN (15:04)
[2022-08-04] MEDS ORDERED: MAGNESIUM HYDROXIDE 2,400 MG/30 ML CUP PO PRN (20:00)
[2022-08-04] MEDS: OLANZapine 7.5 MG TAB PO SCH (21:19)
[2022-08-04] MEDS: MONTELUKAST 10 MG TAB PO SCH (21:20)
[2022-08-05] MEDS: LEVOTHYROXINE 50 MCG TAB PO SCH (06:34)
[2022-08-05] MEDS: hydrOXYzine HCL 25 MG TAB PO SCH (08:17)
[2022-08-05] MEDS: THIAMINE 100 MG TAB PO SCH (08:17)
[2022-08-05] MEDS: FLUoxetine HCL 20 MG CAP PO SCH (08:18)
[2022-08-05] MEDS: FOLIC ACID 1 MG TAB PO SCH (08:18)
[2022-08-05] MEDS: LORATADINE 10 MG TAB PO SCH (08:18)
[2022-08-05] MEDS: DOCUSATE 100 MG CAP PO SCH (08:18)
[2022-08-05] MEDS: SENNOSIDES-DOCUSATE SODIUM 1 EACH TAB PO SCH ×2 (08:18→20:28)
[2022-08-05] MEDS: IBUPROFEN 800 MG TAB PO PRN (08:20)
[2022-08-05] MEDS: MULTIVITAMINS, THERA 1 EACH TAB PO SCH (08:24)
[2022-08-05] MEDS: NICOTINE 21MG/24HR PATCH TRANSDERM SCH (08:24)
--- NOTE | 2022-08-05 09:51 | P.PN ---
Progress Note - Text Progress Note Date: 08/05/22 Interval history: Patient was seen lying in his bed today and was directable and agreeable to s peak with speech writer. Patient is less concerned today about his withdrawal symptoms. He states that he was still having some tooth pain and has been using Orajel. He claims that he did have a bowel movement yesterday and feels a bit better. Continues to endorse anxiety during the day. He claims that he only went to 1 group yesterday however that he go to more groups today. Claims that the Zofran has been helping with the nausea. States that his mood is mildly improved since yesterday. He continues to sleep mainly during the day and he spoke about decreasing his Librium. He claims that he used to do well on melatonin and took 10 mg at nighttime and his Griebel to take it at this time. At this time patient denies any suicidal or homicidal ideations intent or plan. Denies any Auditory or visual hallucinations. Patient denies any side effects from the medications and has been compliant with meds. Mental status exam: General Appearance: Patient appears to be thin, short dyed hair, stated age is alert, directable, and cooperative. Behavior: No agitated behavior. Patient is calm and directable. Guarded Speech: Patient's speech is fluent and nonpressured. [place] Mood/Affect: Mood is endorsing anxiety, mood is improving, affect is congruent and constricted. Suicidality/Homicidality: Patient denies having any suicidal or homicidal ideation intent or plan. Perceptions: Patient denies any auditory or visual hallucinations. Though content/process: There is no evidence of any delusional thought content and thought process is linear and goal-directed. [place]. Focused on medications. Memory and concentration: AOX3, grossly intact for the purposes of this session Judgment and insight: Chronically limited, improving mildly Assessment/Plan: Continue with current diagnosis. Patient continues to meet criteria for inpatient psychiatric admission for symptom stabilization and safety.Patient will be maintained on current psychotropic medication regimen, with the exception of increasing patient's Vistaril scheduled to 4 times a day dosing for anxiety. Also added melatonin 10 mg daily at bedtime for sleep. Decreasing Librium scheduled to 10 mg 4 times a day and continue to taper down tomorrow. Monitor for medication compliance and for any psychotropic medication side effects. Will continue to monitor ongoing response to treatment. Encouraged participation in milieu.
[2022-08-05] MEDS: hydrOXYzine pamoate 25 MG CAP PO SCH ×3 (13:34→20:56)
[2022-08-05] MEDS: ACETAMINOPHEN TAB 325 MG TAB PO PRN (15:18)
[2022-08-05] MEDS: LORazepam 1 MG TAB PO PRN (15:19)
[2022-08-05] MEDS: MAG HYDROX/AL HYDROX/SIMETH 30 ML CUP PO PRN (20:28)
[2022-08-05] MEDS: MELATONIN 3 MG TABLET PO SCH (20:56)
[2022-08-05] MEDS: MONTELUKAST 10 MG TAB PO SCH (20:56)
[2022-08-05] MEDS: OLANZapine 7.5 MG TAB PO SCH (20:57)
[2022-08-06] MEDS: LEVOTHYROXINE 50 MCG TAB PO SCH (06:21)
[2022-08-06] MEDS: LORazepam 1 MG TAB PO PRN (06:42)
[2022-08-06] MEDS: MAG HYDROX/AL HYDROX/SIMETH 30 ML CUP PO PRN ×2 (07:45→18:39)
[2022-08-06] MEDS: NICOTINE 21MG/24HR PATCH TRANSDERM SCH (07:45)
[2022-08-06] MEDS: FLUoxetine HCL 20 MG CAP PO SCH (07:48)
[2022-08-06] MEDS: DOCUSATE 100 MG CAP PO SCH (07:48)
[2022-08-06] MEDS: FOLIC ACID 1 MG TAB PO SCH (07:49)
[2022-08-06] MEDS: hydrOXYzine pamoate 25 MG CAP PO SCH ×3 (07:49→22:52)
[2022-08-06] MEDS: LORATADINE 10 MG TAB PO SCH (07:49)
[2022-08-06] MEDS: SENNOSIDES-DOCUSATE SODIUM 1 EACH TAB PO SCH ×2 (07:49→22:52)
[2022-08-06] MEDS: MULTIVITAMINS, THERA 1 EACH TAB PO SCH (07:49)
[2022-08-06] MEDS: THIAMINE 100 MG TAB PO SCH (07:50)
[2022-08-06] MEDS: cloNIDine HCL 0.1 MG TAB PO PRN ×2 (09:51→18:39)
[2022-08-06] MEDS: MAGNESIUM HYDROXIDE 2,400 MG/30 ML CUP PO PRN (09:53)
[2022-08-06] MEDS: OLANZapine 5 MG TAB PO SCH (11:27)
--- NOTE | 2022-08-06 11:40 | P.PN ---
Progress Note - Text Progress Note Date: 08/06/22 Interval history: Patient was seen today wandering the hallways. He appeared to be dressed in street clothing, wearing sunglasses. He states that he is doing a bit better today however continues to state that his anxiety is "freda high". He was more appropriate today in interaction and appeared to be more week. She claims that he was going to groups earlier today and try to participate. He also claims that he has been showering and eating meals. Patient is less concerned today about his withdrawal symptoms. We spoke about decreasing his Librium and adjusting his other medications that she was okay with. Denying any depression today. He slept better last night. At this time patient denies any suicidal or homicidal ideations intent or plan. Denies any Auditory or visual hallucinations. Patient denies any side effects from the medications and has been compliant with meds. Mental status exam: General Appearance: Patient appears to be thin, short dyed hair, stated age is alert, directable, and cooperative. Behavior: No agitated behavior. Patient is calm and directable. Brighter. Speech: Patient's speech is fluent and nonpressured. [place] Mood/Affect: Mood is endorsing anxiety, mood is improving, affect is congruent Suicidality/Homicidality: Patient denies having any suicidal or homicidal ideation intent or plan. Perceptions: Patient denies any auditory or visual hallucinations. Though content/process: There is no evidence of any delusional thought content and thought process is linear and goal-directed. Focused on medications. Memory and concentration: AOX3, grossly intact for the purposes of this session Judgment and insight: Chronically limited, improving mildly Assessment/Plan: Continue with current diagnosis. Patient continues to meet criteria for inpatient psychiatric admission for symptom stabilization and safety.Patient will be maintained on current psychotropic medication regimen, increased Vistaril scheduled to 50 mg tid dosing for anxiety. continue with melatonin 10 mg daily at bedtime for sleep. added morning dose of zyprexa 5 mg daily for mood stabilization/anxiety. Decreasing Librium scheduled to 10 mg 3 times a day and continue to taper down tomorrow. Monitor for medication compliance and for any psychotropic medication side effects. Will continue to monitor ongoing response to treatment. Encouraged participation in milieu. awaiitng response for rehab inpt
[2022-08-06] MEDS: SIMETHICONE 80 MG CHEWABLE PO SCH ×2 (15:20→22:53)
[2022-08-06] MEDS: BENZOCAINE 20 % GEL 11.9 GM TUBE MM PRN (15:45)
[2022-08-06] MEDS: MELATONIN 3 MG TABLET PO SCH (22:51)
[2022-08-06] MEDS: OLANZapine 7.5 MG TAB PO SCH (22:51)
[2022-08-06] MEDS: MONTELUKAST 10 MG TAB PO SCH (22:52)
[2022-08-07] MEDS: LEVOTHYROXINE 50 MCG TAB PO SCH (07:48)
[2022-08-07] MEDS: NICOTINE 21MG/24HR PATCH TRANSDERM SCH (07:51)
[2022-08-07] MEDS: FOLIC ACID 1 MG TAB PO SCH (08:25)
[2022-08-07] MEDS: FLUoxetine HCL 20 MG CAP PO SCH (08:25)
[2022-08-07] MEDS: hydrOXYzine pamoate 25 MG CAP PO SCH (08:25)
[2022-08-07] MEDS: DOCUSATE 100 MG CAP PO SCH (08:25)
[2022-08-07] MEDS: LORATADINE 10 MG TAB PO SCH (08:26)
[2022-08-07] MEDS: MULTIVITAMINS, THERA 1 EACH TAB PO SCH (08:26)
[2022-08-07] MEDS: OLANZapine 5 MG TAB PO SCH (08:26)
[2022-08-07] MEDS: SIMETHICONE 80 MG CHEWABLE PO SCH (08:26)
[2022-08-07] MEDS: SENNOSIDES-DOCUSATE SODIUM 1 EACH TAB PO SCH (08:26)
[2022-08-07] MEDS: THIAMINE 100 MG TAB PO SCH (08:27)
[2022-08-07] MEDS: ALBUTEROL INHALER 60 PUFF/8 GM INHALER (MHU) INHALATION PRN (08:31)
[2022-08-07 08:33] VITALS: BP 109/59; PULSE 84
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
== END 2022-08-07 12:52 | disposition home or self-care (01) | DRG 753 ==
LOC: EC 07:13 → 3MHU 21:49
PROVIDERS: ADMIT Psychiatry & Neurology Psychiatry; ATTEND Psychiatry & Neurology Psychiatry
DX: F31.9 Bipolar disorder, unspecified (principal); F12.10 Cannabis abuse, uncomplicated; F10.10 Alcohol abuse, uncomplicated; F11.10 Opioid abuse, uncomplicated; F15.10 Other stimulant abuse, uncomplicated; Z28.21 Immunization not carried out because of patient refusal; Z20.822 Contact with and (suspected) exposure to COVID-19; F90.9 Attention-deficit hyperactivity disorder, unspecified type; F41.9 Anxiety disorder, unspecified; Z87.820 Personal history of traumatic brain injury; Z88.0 Allergy status to penicillin; K08.89 Other specified disorders of teeth and supporting structures; Z79.890 Hormone replacement therapy; Z79.899 Other long term (current) drug therapy; Z81.8 Family history of other mental and behavioral disorders; Z71.89 Other specified counseling
CPT/HCPCS: 36415; 80061; 80306; 80320; 81001; 83036; 84443; 87635

== ENCOUNTER → 2022-08-17 | Outpatient (CLI) | payer OTHER | END | disposition home or self-care (01) | LOC: LABWHC1 15:42 | PROVIDERS: ATTEND Family Medicine | DX: F19.90 Other psychoactive substance use, unspecified, uncomplicated (principal); R22.9 Localized swelling, mass and lump, unspecified | CPT/HCPCS: 87040 ==

== ENCOUNTER → 2023-02-26 | Outpatient (CLI) | payer OTHER ==
[2023-02-26 19:52] LABS: MCH 26.8 pg (27.0-32.0); MCHC 32.6 g/dL (32.0-37.0); MCV 82.3 FL (80.0-97.0); Mean Platelet Volume 11.1 FL (9.5-12.2); NRBC Per 100 WBC 0 X 10*3/uL (0.00-0.01); Platelet Count 238 X 10*3/uL (140-440); RBC 5.59 X 10*6/uL (4.40-5.60); RDW 13.2 % (11.5-14.5); WBC 7.59 X 10*3/uL (4.50-10.00)
[2023-02-26 20:42] LABS: Hepatitis C IgG Antibody Reactive (Non-Reactive)
[2023-02-26 21:04] LABS: ALT 8 U/L (10-49); AST 11 U/L (14-35); Albumin 4.2 g/dL (3.8-4.9); Albumin/Globulin Ratio 1.17 Ratio (1.60-3.17); Alkaline Phosphatase 75 U/L (41-126); Blood Urea Nitrogen 10.8 mg/dL (9.0-27.0); Calcium 9.5 mg/dL (8.7-10.3); Carbon Dioxide 28.2 mmol/L (21.6-31.8); Chloride 100 mmol/L (96-109); Chol/HDL Ratio 4.19 Ratio; Globulin 3.6 g/dL (1.6-3.3); Glucose 165 mg/dL (70-110); Potassium 4.2 mmol/L (3.5-5.5); Sodium 138 mmol/L (135-145); Total Bilirubin 0.4 mg/dL (0.3-1.2); Total Protein 7.8 g/dL (6.2-8.2)
[2023-02-26 21:09] LABS: Hepatitis A Antibody IgM Nonreactive; Hepatitis B Core IgM Nonreactive; Hepatitis B Surface Antigen Nonreactive
[2023-02-26 22:29] LABS: HIV 2 AB Non-Reactive (Non-Reactive); HIV AB P24 Non-Reactive (Non-Reactive); HIV P24 AG Non-Reactive (Non-Reactive)
== END | disposition home or self-care (01) ==
LOC: LABWHC1 15:13
PROVIDERS: ATTEND Family Medicine
DX: F15.10 Other stimulant abuse, uncomplicated (principal); F31.12 Bipolar disorder, current episode manic without psychotic features, moderate; F19.10 Other psychoactive substance abuse, uncomplicated; E03.9 Hypothyroidism, unspecified; F10.10 Alcohol abuse, uncomplicated; R73.01 Impaired fasting glucose
CPT/HCPCS: 36415; 80053; 80061; 80074; 83036; 84443; 85027; 87390

== ENCOUNTER → 2023-03-12 | Outpatient (CLI) | payer OTHER | END | disposition home or self-care (01) | LOC: LABWHC1 12:16 | PROVIDERS: ATTEND Family Medicine | DX: F10.20 Alcohol dependence, uncomplicated (principal); R73.01 Impaired fasting glucose; R76.8 Other specified abnormal immunological findings in serum | CPT/HCPCS: 36415; 83036; 87522 ==

== ENCOUNTER → 2023-09-26 | Outpatient (CLI) | payer OTHER | END | disposition home or self-care (01) | LOC: LABWHC1 14:57 | PROVIDERS: ATTEND Family Medicine | DX: F90.9 Attention-deficit hyperactivity disorder, unspecified type (principal); F31.12 Bipolar disorder, current episode manic without psychotic features, moderate; J45.20 Mild intermittent asthma, uncomplicated; F12.20 Cannabis dependence, uncomplicated | CPT/HCPCS: 36415; 80053; 80061; 84443; 85027 ==

== ENCOUNTER → 2024-01-25 | Outpatient (CLI) | payer OTHER ==
[2024-01-25 18:32] LABS: HCT 43.6 % (39.6-50.0); MCH 29.8 pg (27.0-32.0); MCHC 34.4 g/dL (32.0-37.0); MCV 86.7 FL (80.0-97.0); Mean Platelet Volume 10.3 FL (9.5-12.2); NRBC Per 100 WBC 0 X 10*3/uL (0.00-0.01); Platelet Count 250 X 10*3/uL (140-440); RBC 5.03 X 10*6/uL (4.40-5.60); WBC 5.34 X 10*3/uL (4.50-10.00)
[2024-01-26 02:57] LABS: ALT 10 U/L (10-49); AST 21 U/L (14-35); Albumin 4.5 g/dL (3.8-4.9); Albumin/Globulin Ratio 1.25 Ratio (1.60-3.17); Alkaline Phosphatase 101 U/L (41-126); Blood Urea Nitrogen 14.4 mg/dL (9.0-27.0); Calcium 9.5 mg/dL (8.7-10.3); Carbon Dioxide 24.7 mmol/L (21.6-31.8); Chloride 103 mmol/L (96-109); Chol/HDL Ratio 3.64 Ratio; Globulin 3.6 g/dL (1.6-3.3); Glucose 114 mg/dL (70-110); LDL Cholesterol,Calculated 92.6 mg/dL (0.0-131.0); Potassium 4.2 mmol/L (3.5-5.5); Sodium 140 mmol/L (135-145); Total Bilirubin 0.8 mg/dL (0.3-1.2); Total Protein 8.1 g/dL (6.2-8.2)
== END | disposition home or self-care (01) ==
LOC: LABWHC1 15:52
PROVIDERS: ATTEND Family Medicine
DX: Z13.220 Encounter for screening for lipoid disorders (principal); R73.02 Impaired glucose tolerance (oral)
CPT/HCPCS: 36415; 80053; 80061; 83036; 84443; 85027

== ENCOUNTER → 2024-04-07 | Outpatient (CLI) | payer OTHER ==
[2024-04-07 20:40] LABS: ALT 17 U/L (10-49); AST 24 U/L (14-35); Albumin 4.1 g/dL (3.8-4.9); Albumin/Globulin Ratio 1.17 Ratio (1.60-3.17); Alkaline Phosphatase 117 U/L (41-126); BUN/Creat Ratio 8.22 Ratio (12.00-20.00); Blood Urea Nitrogen 7.4 mg/dL (9.0-27.0); Calcium 9.4 mg/dL (8.7-10.3); Carbon Dioxide 25.3 mmol/L (21.6-31.8); Chloride 101 mmol/L (96-109); Globulin 3.5 g/dL (1.6-3.3); Glucose 90 mg/dL (70-110); Lipase 16 U/L (14-60); Potassium 4.7 mmol/L (3.5-5.5); Sodium 139 mmol/L (135-145); Total Bilirubin 0.4 mg/dL (0.3-1.2); Total Protein 7.6 g/dL (6.2-8.2)
[2024-04-07 20:56] LABS: HCT 47.2 % (39.6-50.0); MCH 27.6 pg (27.0-32.0); MCHC 31.8 g/dL (32.0-37.0); MCV 86.8 FL (80.0-97.0); Mean Platelet Volume 10.4 FL (9.5-12.2); NRBC Per 100 WBC 0 X 10*3/uL (0.00-0.01); Platelet Count 342 X 10*3/uL (140-440); RBC 5.44 X 10*6/uL (4.40-5.60); RDW 12.9 % (11.5-14.5); WBC 9.62 X 10*3/uL (4.50-10.00)
== END | disposition home or self-care (01) ==
LOC: LABWHC1 13:59
PROVIDERS: ATTEND Family Medicine
DX: K29.70 Gastritis, unspecified, without bleeding (principal); F31.12 Bipolar disorder, current episode manic without psychotic features, moderate; R10.9 Unspecified abdominal pain
CPT/HCPCS: 36415; 80053; 83690; 84443; 85027

== ENCOUNTER → 2024-04-09 | Outpatient (CLI) | payer OTHER | END | disposition home or self-care (01) | LOC: LABWHC1 08:23 | PROVIDERS: ATTEND Family Medicine | DX: K29.70 Gastritis, unspecified, without bleeding (principal); F31.12 Bipolar disorder, current episode manic without psychotic features, moderate ==

== ENCOUNTER → 2024-07-03 | Outpatient (CLI) | payer OTHER ==
[2024-07-03 19:36] LABS: HCT 48.6 % (39.6-50.0); HGB 15.1 g/dL (13.0-17.0); MCH 26.2 pg (27.0-32.0); MCHC 31.1 g/dL (32.0-37.0); MCV 84.2 FL (80.0-97.0); Mean Platelet Volume 10.3 FL (9.5-12.2); NRBC Per 100 WBC 0 X 10*3/uL (0.00-0.01); Platelet Count 288 X 10*3/uL (140-440); RBC 5.77 X 10*6/uL (4.40-5.60); RDW 14.2 % (11.5-14.5); WBC 4.77 X 10*3/uL (4.50-10.00)
[2024-07-03 22:20] LABS: ALT 12 U/L (10-49); AST 21 U/L (14-35); Albumin 4.4 g/dL (3.8-4.9); Albumin/Globulin Ratio 1.26 Ratio (1.60-3.17); Alkaline Phosphatase 96 U/L (41-126); BUN/Creat Ratio 12.56 Ratio (12.00-20.00); Blood Urea Nitrogen 11.3 mg/dL (9.0-27.0); Calcium 9.7 mg/dL (8.7-10.3); Chloride 104 mmol/L (96-109); Chol/HDL Ratio 3.83 Ratio; Globulin 3.5 g/dL (1.6-3.3); Glucose 50 mg/dL (70-110); LDL Cholesterol,Calculated 112.3 mg/dL (0.0-131.0); Potassium 4.7 mmol/L (3.5-5.5); Sodium 143 mmol/L (135-145); Total Bilirubin 0.6 mg/dL (0.3-1.2); Total Protein 7.9 g/dL (6.2-8.2)
== END | disposition home or self-care (01) ==
LOC: LABWHC1 13:29
PROVIDERS: ATTEND Family Medicine
DX: F90.0 Attention-deficit hyperactivity disorder, predominantly inattentive type (principal); E78.5 Hyperlipidemia, unspecified
CPT/HCPCS: 36415; 80053; 80061; 84443; 85027